=== PATIENT | female | born 1955 | race African-American/Black ===

== ENCOUNTER 2017-04-20 02:34 | Emergency (ER) | payer MEDICAID ==
[~2017-04-20] VITALS: Ht 162.6 cm; Wt 86.2 kg
[~2017-04-20 02:34] MED LIST: CARI250T8; OMEP20TA44; POTA10TA75; TRAM50TA2; ZOLP-158
[2017-04-20] MEDS ORDERED: ETOMIDATE (2MG/ML) 20ML VIAL IV ONE ×2 (02:36→04:30)
[2017-04-20] MEDS ORDERED: SUCCINYLCHOLINE CHLORIDE 20 MG/ML 10ML VIAL IV ONE ×2 (02:37→04:30)
[2017-04-20] MEDS ORDERED: SODIUM CHLORIDE 0.9% 1,000 ML IV ONE (03:00)
[2017-04-20 03:11] LABS: Basophils # (auto) 0 uL; Basophils % (auto) 0.8 % (0.0-2.0); Eosinophils # (auto) 0.1 uL; Eosinophils % (auto) 1.6 % (0.0-7.0); Hematocrit 34.7 % (36.0-46.0); Hemoglobin 11.4 g/dL (12.2-16.2); Lymphocytes # (auto) 1.6 uL; Lymphocytes % (auto) 42.5 % (10.0-50.0); Mean Corpuscular Hemoglobin 27.2 pg (28.0-32.0); Mean Corpuscular Hgb Conc. 32.9 g/dL (32.0-36.0); Mean Corpuscular Volume 82.6 fL (80.0-100.0); Mean Platelet Volume 8.9 fL (7.4-10.4); Monocytes # (auto) 0.3 uL; Monocytes % (auto) 8.8 % (0.0-12.0); Neutrophils # (auto) 1.8 uL; Neutrophils % (auto) 46.3 % (37.0-80.0); Platelet Count (auto) 269 10^3/uL (140-450); Red Cell Distribution Width 14.3 % (11.6-16.0); White Blood Cell 3.8 10^3/uL (4.4-10.8)
[2017-04-20 03:18] LABS: Allen Test Modified; Base Excess 1.8 mmol/L (-2.0-2.0); Blood 02Sat 95.4 % (96-100); Blood COHb 0.3 % (0.5-1.5); Blood MetHb 0.3 % (0.0-1.5); HCO3 26.8 mmol/L (22-26.0); HHb 4.6 % (0.0-5.0); MODE NASAL CANNULA; O2Hb 94.8 % (94.0-97.0); PCO2 43.6 mmHg (35.0-45.0); PCO2(T) 43.6 mmHg (35.0-45.0); PO2 89.5 mmHg (80.0-100.0); PO2(T) 89.5 mmHg (80.0-100.0); Sample Type Arterial; pH 7.406 (7.350-7.450)
[2017-04-20 03:34] LABS: Albumin 2.8 g/dL (3.4-5.0); Anion Gap 8 (5-15); Aspartate Aminotransferase 15 U/L (15-37); BUN/Creatinine Ratio 14.4; Blood Urea Nitrogen 15 mg/dL (7-18); Carbon Dioxide 30 mmol/L (21-32); Chloride 106 mmol/L (98-107); GFR African American 69 mL/min; GFR Non-African American 57 mL/min; Glucose 91 mg/dL (74-106); Magnesium 2.1 mg/dL (1.6-2.6); Sodium 144 mmol/L (136-145)
[2017-04-20 03:36] LABS: Acetaminophen < 2.0 ug/mL (10-30); Alkaline Phosphatase 102 U/L (45-117); Bilirubin, Total < 0.1 mg/dL (0.2-1.0); Salicylate < 1.7 mg/dL (2.8-20.0); Total Protein 6.3 g/dL (6.4-8.2)
[2017-04-20 04:01] LABS: Urine Bilirubin Negative (Negative); Urine Blood Negative /uL (Negative); Urine Color Yellow (Yellow); Urine Glucose Normal (Normal); Urine Ketone Negative (Negative); Urine Nitrite Negative (Negative); Urine RBC <1 /hpf (0 - 4); Urine Urobilinogen Normal (Negative)
[2017-04-20 09:03] VITALS: BP 111/79
[2017-04-20 09:48] LABS: Albumin 2.6 g/dL (3.4-5.0); BUN/Creatinine Ratio 14.8; Potassium 3.5 mmol/L (3.5-5.1)
[2017-04-20 09:51] LABS: Bilirubin, Total 0.2 mg/dL (0.2-1.0)
== END 2017-04-20 11:29 | disposition home or self-care (01) ==
LOC: EDBD 02:34 → ER 02:34
DX: T40.4X1A Poisoning by other synthetic narcotics, accidental (unintentional), initial encounter (principal); T42.6X1A Poisoning by other antiepileptic and sedative-hypnotic drugs, accidental (unintentional), initial encounter; T46.5X1A Poisoning by other antihypertensive drugs, accidental (unintentional), initial encounter; F23 Brief psychotic disorder; R41.82 Altered mental status, unspecified; I10 Essential (primary) hypertension; Z90.710 Acquired absence of both cervix and uterus; Z88.6 Allergy status to analgesic agent; Z79.899 Other long term (current) drug therapy; Y92.9 Unspecified place or not applicable
CPT/HCPCS: 36415; 36600; 51702; 71010; 80053; 80307; 80320; 80329; 81001; 82805; 83605; 83735; 85025; 93005; 96360; 96361; 99285; J0330; J7030; 94761

== ENCOUNTER 2021-04-27 15:42 | Emergency (ER) | payer OTHER, MEDICAID ==
[~2021-04-27] VITALS: Ht 160 cm; Wt 77.1 kg
[~2021-04-27 15:42] MED LIST changes: +CARI250T; -CARI250T8; +POTA-264; -POTA10TA75; -ZOLP-158; +ZOLP5TAB
[2021-04-27 16:50] VITALS: BP 120/72
[2021-04-27] MEDS ORDERED: PROMETHAZINE HCL 25 MG/ML 1ML IM ONE (17:00)
[2021-04-27] MEDS ORDERED: MEPERIDINE HCL (50 MG/ML) 1 ML VIAL IM ONE (17:00)
== END 2021-04-27 18:19 | disposition home or self-care (01) ==
LOC: ER 15:42
DX: M48.07 Spinal stenosis, lumbosacral region (principal); M51.36 Other intervertebral disc degeneration, lumbar region; M54.16 Radiculopathy, lumbar region; I10 Essential (primary) hypertension; Z88.6 Allergy status to analgesic agent; Z88.5 Allergy status to narcotic agent; Z88.1 Allergy status to other antibiotic agents; Z79.899 Other long term (current) drug therapy; Z90.710 Acquired absence of both cervix and uterus
CPT/HCPCS: 72131; 96372; 99284; J2175; J2550

== ENCOUNTER 2022-11-21 13:50 | Emergency (ER) | payer OTHER, MEDICAID ==
[~2022-11-21] VITALS: Ht 160 cm; Wt 73.0 kg
[2022-11-21 14:54] VITALS: BP 133/95
[2022-11-21] MEDS ORDERED: ACETAMINOPHEN 500 MG TAB PO ONE (16:30)
[2022-11-21] MEDS ORDERED: methylPREDNISolone SOD SUCC 125 MG/2 ML VL IM ONE (16:30)
[2022-11-21] MEDS ORDERED: PRED20TA2 PO (16:41)
== END 2022-11-21 17:02 | disposition home or self-care (01) ==
LOC: ER 13:50
DX: M17.0 Bilateral primary osteoarthritis of knee (principal); M25.462 Effusion, left knee; I10 Essential (primary) hypertension; Z90.710 Acquired absence of both cervix and uterus; Z88.6 Allergy status to analgesic agent
CPT/HCPCS: 73562; 96372; 99283; J2930

== ENCOUNTER 2023-03-13 21:51 | Emergency (ER) | payer OTHER, MEDICAID ==
[~2023-03-13] VITALS: Ht 160 cm; Wt 89.1 kg
[~2023-03-13 21:51] MED LIST changes: +PRED20TA2 PO
[2023-03-13 22:20] LABS: Basophils # (auto) 0.1 10 ^3/uL (0-0.2); Eosinophils # (auto) 0.1 10 ^3/uL (0-0.8); Eosinophils % (auto) 2.8 % (0.0-7.0); Hematocrit 36.7 % (36.0-46.0); Hemoglobin 11.8 g/dL (12.2-16.2); Lymphocytes # (auto) 1.4 10 ^3/uL (0.4-5.4); Lymphocytes % (auto) 26.4 % (10.0-50.0); Mean Corpuscular Hemoglobin 27.3 pg (28.0-32.0); Mean Corpuscular Volume 85.2 fL (80.0-100.0); Monocytes # (auto) 0.4 10 ^3/uL (0-1.3); Neutrophils # (auto) 3.3 10 ^3/uL (1.6-8.6); Neutrophils % (auto) 62.8 % (37.0-80.0); Nucleated Red Blood Cells % 0.1 %; Red Blood Cells 4.31 10^6/uL (4.0-5.20); Red Cell Distribution Width 15.1 % (11.8-14.3); White Blood Cell 5.3 10^3/uL (4.4-10.8)
[2023-03-13 22:39] LABS: Albumin 3.2 g/dL (3.4-5.0); Potassium 3.3 mmol/L (3.5-5.1)
[2023-03-13 22:45] LABS: BUN/Creatinine Ratio 13.8 (10.0-20.0); Bilirubin, Total 0.2 mg/dL (0.2-1.0); Total Protein 6.4 g/dL (6.4-8.2)
[2023-03-14 01:27] LABS: Urine Bacteria MANY /hpf (None Seen); Urine Blood Negative /uL (Negative); Urine Hyaline Cast MANY /lpf (0 - 2); Urine Mucus FEW (None Seen); Urine WBC 102 /hpf (0 - 5)
[2023-03-14] MEDS ORDERED: CEPH-510 PO (05:39)
[2023-03-14 05:43] VITALS: BP 128/98
== END 2023-03-14 05:58 | disposition home or self-care (01) ==
LOC: ER 21:51
DX: R07.89 Other chest pain (principal); R60.0 Localized edema; I10 Essential (primary) hypertension; D64.9 Anemia, unspecified; E87.6 Hypokalemia; N39.0 Urinary tract infection, site not specified; J45.909 Unspecified asthma, uncomplicated; Z90.710 Acquired absence of both cervix and uterus; Z88.6 Allergy status to analgesic agent
CPT/HCPCS: 36415; 71045; 80053; 81001; 84484; 85025; 93005

== ENCOUNTER 2025-07-25 08:51 | Emergency (ER) | payer OTHER, MEDICAID ==
[~2025-07-25] VITALS: Ht 160 cm; Wt 72.3 kg
[~2025-07-25 08:51] MED LIST changes: +CEPH-510 PO
--- NOTE | 2025-07-25 09:18 | ED.PDOC ---
HPI Allergic reaction HPI Comments This is a 70-year-old female who presents to the ED with a chief complaint of rash to bilateral arms and legs as of X5 days ago (07/20/25) after walking through bushes and grass. Patient reports going to urgent care on Thursday where she was prescribed Mupirocin 2% ointment and Cephalexin 500mg, but notes no relief. Patient reports additional symptoms of itchiness and redness to the rash site, with a swelling of the bilateral feet. Patient has not further complaints at this time and otherwise denies further associated symptoms of throat swelling, chest pain, fever, chills, nausea, vomiting, or general weakness. Chief Complaint: Rash Time Seen by MD: 09:13 Primary Care Provider: JACKSON Reviewed Notes: Nurses Notes, Medications, Allergies Allergies: Coded Allergies: Acetaminophen (Verified Allergy, Severe, ITCHING, 05/17/12) Hydrocodone (Verified Allergy, Severe, ITCHING, 05/17/12) Tetracyclines (Verified Allergy, Unknown, 04/27/21) Home Meds Active Scripts Cetirizine Hcl (Cetirizine Hcl) 5 Mg Tab, 10 MG PO DAILY for 30 Days, #60 TAB 0 Refills Prov:MAGALI HARDING NP 07/25/25 Methylprednisolone (Medrol Dosepak) 4 Mg Sam, 4 MG PO UD, #21 TAB 0 Refills UAD Prov:MAGALI HARDING NP 07/25/25 Triamcinolone Acetonide (Triamcinolone Acetonide) 0.1 % Cre, 1 APPLIC EX BID for 7 Days, #60 GRAMS 0 Refills Prov:MAGALI HARDING NP 07/25/25 Cephalexin ( Keflex 500) 500 Mg Cap, 1 CAP PO QID for 5 Days, #20 CAP Prov:PATRIZIA GALLAGHER DO 03/14/23 Prednisone (Prednisone) 20 Mg Tab, 40 MG PO DAILY, #20 MG Prov:KE GUERRERO 11/21/22 Reported Medications Potassium Chloride (K-Tabs) 10 Meq Tab 05/17/12 Carisoprodol (Soma) 250 Mg Tab 05/17/12 Zolpidem Tartrate (Ambien) 5 Mg Tab 05/17/12 Omeprazole ([facility] Omeprazole) 20 Mg Tab 05/17/12 Tramadol Hcl (Tramadol Hcl) 50 Mg Tab 05/17/12 Information Source: Patient Mode of Arrival: Ambulatory Severity: Moderate Rash: Mild SOB: None Difficulty swallowing: None Pruritus: None Timing: Days Duration: Since onset Prehospital treatment: None Location: Arm, Leg Modyifying Factors: None Associated Sign and Symptoms: None Past Medical History PAST MEDICAL HISTORY: Arthritis, HTN Surgical History: Hysterectomy 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 Hx Family History Family History: No family hx of Heart anna, No family hx of HTN, No family hx of Stroke Social History Smoker: Non-Smoker Alcohol: Denies ETOH Use Drugs: Denies Drug Use Lives In: Home Constitutional: denies: chills, diaphoresis, fatigue, fever, malaise, sweats, weakness, others EENTM: denies: blurred vision, double vision, ear bleeding, ear discharge, ear drainage, ear pain, ear ringing, eye pain, eye redness, hearing loss, mouth pain, mouth swelling, nasal discharge, nose bleeding, nose congestion, nose pain, photophobia, tearing, throat pain, throat swelling, voice changes, others Respiratory: denies: cough, hemoptysis, orthopnea, SOB at rest, shortness of breath, SOB with excertion, stridor, wheezing, others Cardiovascular: denies: chest pain, dizzy spells, diaphoresis, Dyspnea on exertion, edema, irregular heart beat, left arm pain, lightheadedness, palpitations, PND, syncope, others Gastrointestinal: denies: abdomen distended, abdominal pain, blood streaked bowels, constipated, diarrhea, dysphagia, difficulty swallowing, hematemesis, melena, nausea, poor appetite, poor fluid intake, rectal bleeding, rectal pain, vomiting, others Genitourinary: denies: abnormal vagina bleeding, burning, dyspareunia, dysuria, flank pain, frequency, hematuria, incontinence, pain, , vagina discharge, urgency, others Neurological: denies: dizziness, fainting, headache, left sided numbness, left sided weakness, numbness, paresthesia, pre-existing deficit, right sided numbness, right sided weakness, seizure, speech problems, tingling, tremors, weakness, others Musculoskeletal: denies: back pain, gout, joint pain, joint swelling, muscle pain, muscle stiffness, neck pain, others Integumetry: reports: rash; denies: bruises, change in color, change in hair/nails, dryness, laceration, lesions, lumps, wounds, others Allergic/Immunocompromised: denies: Difficulty Healing, Frequent Infections, Hives, Itching, others Hematologic/Lymphatic: denies: anemia, blood clots, easy bleeding, easy bruising, swollen glands, others Endocrine: denies: excessive hunger, excessive sweating, excessive thirst, excessive urination, flushing, intolerance to cold, intolerance to heat, unexplained weight gain, unexplained weight loss, others Psychiatric: denies: anxiety, bipolar disorder, depression, hopeless, panic disorder, schizophrenia, sleepless, suicidal, others All Other Systems: Reviewed and Negative Physical Exam General Appearance: Mild Distress, Normal HEENT: Normal ENT Inspection, Pharynx Normal, TMs Normal Neck: Full Range of Motion, Non-Tender, Normal, Normal Inspection Respiratory: Chest Non-Tender, Lungs Clear, No Accessory Muscle Use, No Respiratory Distress, Normal Breath Sounds Cardiovascular: No Edema, No JVD, No Murmur, No Gallop, Normal Peripheral Pulses, Regular Rate/Rhythm Breast Exam: Deferred Gastrointestinal: No Organomegaly, Non Tender, No Pulsatile Mass, Normal Bowel Sounds, Soft Genitalia: Deferred Pelvic: Deferred Rectal: Deferred Extremities: No calf tenderness, Normal capillary refill, Normal inspection, Normal range of motion, Non-tender, No pedal edema Musculoskeletal : Apperance: Normal Neurologic: Alert, refueling ramp attendant II-XII nml as Tested, No Motor Deficits, Normal Affect, Normal Mood, No Sensory Deficits Cerebellar Function: Normal Reflexes: Normal Skin: Dry, Normal Color, Rash (scattered erythematous nodules 1cm throguhout the upper and lower extremities ) Lymphatic: No Adenopathy Was a procedure done? Was a procedure done?: No Differential diagnosis (all) Differential Diagnosis: Contact Dermatitis X-Ray, Labs, Meds, VS Vital Signs Date Time Temp Pulse Resp B/P (MAP) Pulse Ox O2 Delivery O2 Flow Rate FiO2 07/25/25 10:10 98.2 68 16 136/89 (105) 87 98.2 07/25/25 10:10 68 16 98 Room Air 07/25/25 08:54 98.7 67 18 116/71 97 98.7 Current Medications Medications (Trade) Dose Ordered Sig/Little Route Start Time Stop Time Status Last Admin Methylprednisolone Sodium Succinate (Solu Medrol) 125 mg ONCE ONCE IM 07/25/25 09:15 07/25/25 09:16 DC 07/25/25 09:21 Famotidine (Pepcid Tablet) 40 mg ONCE ONCE PO 07/25/25 09:15 07/25/25 09:16 DC 07/25/25 09:22 Diphenhydramine HCl (Benadryl Capsule) 25 mg ONCE ONCE PO 07/25/25 09:15 07/25/25 09:16 DC 07/25/25 09:21 X-Ray, Labs, Meds, VS Comment This is a 70-year-old female who presents to the ED with a chief complaint of rash to bilateral arms and legs as of X5 days ago (07/20/25) after walking through bushes and grass. Patient arrives alert and oriented, ABC's intact, afebrile, vital signs stable, saturating well in room air Patient was given: Solu-Medrol 125 mg/2ml, Pepcid tablet 40 mg, Benadryl capsule 25 mg. Tolerated medications with no adverse reaction. On reevaluation, patient had symptomatic improvement. Patient is stable for discharge at this time. External notes reviewed. Test results and diagnostic imaging interpreted. All diagnostic findings, discharge care, education and instructions provided Follow-up with PCP in 2 to 3 days Patient verbalized understanding and agreed to treatment plan Vital signs stable, afebrile, no acute distress noted Patient ambulatory with strong steady gait Advised to return precautions for any new or worsening symptoms, return to ER immediately for re-evaluation Patient is aware that the purpose of this visit was for an acute medical emergency requiring emergent stabilization. Chronic conditions, including malignancies have not been ruled out. Patient is instructed to follow up with PCP as directed and discharge instructions for continued care and workup. If unable to arrange follow-up, patient is to return to the emergency department for reassessment. Patient (parent or legal guardian if applicable) was given verbal and written discharge instructions and acknowledges understanding. Additional MDM Review of External, Non-ED records: External records reviewed. Discussion with independent historian (EMS, family) history obtained from the patient/parents (if applicable) at bedside Chronic conditions affecting care: None Social determinants of health affecting care: None Consideration of admission (observation or admission): I considered escalation of care to admission for this patient, however given the reassuring workup, the patient is safe for outpatient management. Discussion with the Radiology: No Tests considered but not performed: Prescription medication considered but not given: 12 lead EKG interpretation: Images Reviewed?: Images reviewed and evaluated by me Time of 1ST Reevaluation: 09:32 Reevaluation 1ST: Unchanged Patient Education/Counseling: Diagnosis, Treatment, Need For Follow Up Family Education/Counseling: No Family Present Medical Screening: No EMC Exist At This Time SEPSIS Sepsis Screen Date sepsis recognized/suspect: Jul 25, 2025 Time Sepsis recognized/suspect: 853 Recent Procedure: No On Antibiotic Therapy: No Respiratory Rate >20: No Heart Rate >90: No Temp<36 C (96.8 F) or >38.3 C: No SBP <90 or MAP <65 mmHG: No New Acute Mental Status Change: No Is the patient on CPAP, BIPAP,: No Vital Signs Date Time Temp Pulse Resp B/P (MAP) Pulse Ox O2 Delivery O2 Flow Rate FiO2 07/25/25 10:10 98.2 68 16 136/89 (105) 87 98.2 07/25/25 10:10 68 16 98 Room Air 07/25/25 08:54 98.7 67 18 116/71 97 98.7 Medications Medications Dose Ordered Sig/Little Route Start Time Stop Time Status Last Admin Dose Admin Diphenhydramine HCl 25 mg ONCE ONCE PO 07/25/25 09:15 07/25/25 09:16 DC 07/25/25 09:21 Famotidine 40 mg ONCE ONCE PO 07/25/25 09:15 07/25/25 09:16 DC 07/25/25 09:22 Methylprednisolone Sodium Succinate 125 mg ONCE ONCE IM 07/25/25 09:15 07/25/25 09:16 DC 07/25/25 09:21 Departure 1 Departure Time of Disposition: 10:02 Impression: Primary Impression: Insect bite Qualified Codes: W57.XXXA - Bitten or stung by nonvenomous insect and other nonvenomous arthropods, initial encounter Disposition: 01 HOME / SELF CARE / HOMELESS Condition: Stable Additional Instructions: Follow up with PCP in 1-2 days. Take medications as prescribed. Return to the ED for any new or worsening symptoms. e-Prescriptions Cetirizine Hcl (Cetirizine Hcl) 5 Mg Tab 10 MG PO DAILY for 30 Days, #60 TAB 0 Refills Prov: MAGALI HARDING SALON SHAMPOO ASSISTANT 07/25/25 Methylprednisolone (Medrol Dosepak) 4 Mg Sam 4 MG PO UD, #21 TAB 0 Refills UAD Prov: MAGALI HARDING SALON SHAMPOO ASSISTANT 07/25/25 Triamcinolone Acetonide (Triamcinolone Acetonide) 0.1 % Cre 1 APPLIC EX BID for 7 Days, #60 GRAMS 0 Refills Prov: MAGALI HARDING SALON SHAMPOO ASSISTANT 07/25/25 Discharged With: Self Critical Care Note Critical Care Time?: No Stability Stability form required: No Heart Score Heart Score: Heart Score Response (Comments) Value History N/A 0 EKG N/A 0 Age N/A 0 Risk Factors N/A 0 Troponin N/A 0 Total 0 I personally scribed for MAGALI HARDING SALON SHAMPOO ASSISTANT ([email or web address]) on 07/25/25 at 09:18. Electronically submitted by Tori Lorenz (Indigoz). I personally scribed for MAGALI HARDING F SALON SHAMPOO ASSISTANT ([email or web address]) on 07/25/25 at 09:19. Electronically submitted by Tori Lorenz (Indigoz). I personally scribed for MAGALI HARDING F SALON SHAMPOO ASSISTANT ([email or web address]) on 07/25/25 at 09:33. Electronically submitted by Tori Lorenz (Indigoz). I personally scribed for MAGALI HARDING F SALON SHAMPOO ASSISTANT ([email or web address]) on 07/25/25 at 09:35. Electronically submitted by Tori Lorenz (Indigoz). I personally scribed for MAGALI HARDING F SALON SHAMPOO ASSISTANT ([email or web address]) on 07/25/25 at 09:44. Electr onically submitted by Tori Lorenz (Indigoz). MAGALI HARDING SALON SHAMPOO ASSISTANT Jul 25, 2025 09:18
[2025-07-25] MEDS: methylPREDNISolone SOD SUCC 125 MG/2 ML VL IM ONE (09:21)
[2025-07-25] MEDS: FAMOTIDINE 20 MG TAB PO ONE (09:22)
[2025-07-25] MEDS ORDERED: TRIO1TP EX (10:05)
[2025-07-25] MEDS ORDERED: CETI5TAB6 PO (10:05)
[2025-07-25] MEDS ORDERED: METH4PAK PO (10:05)
[2025-07-25 10:10] VITALS: BP 136/89; PULSE 68; RESP 16; TEMP 98.2; O2SAT 98
== END 2025-07-25 10:12 | disposition home or self-care (01) ==
LOC: ER 08:51
DX: S40.862A Insect bite (nonvenomous) of left upper arm, initial encounter (principal); S40.861A Insect bite (nonvenomous) of right upper arm, initial encounter; S80.862A Insect bite (nonvenomous), left lower leg, initial encounter; S80.861A Insect bite (nonvenomous), right lower leg, initial encounter; M19.90 Unspecified osteoarthritis, unspecified site; I10 Essential (primary) hypertension; Z79.899 Other long term (current) drug therapy; Z90.710 Acquired absence of both cervix and uterus; Z88.5 Allergy status to narcotic agent; Z79.52 Long term (current) use of systemic steroids; W57.XXXA Bitten or stung by nonvenomous insect and other nonvenomous arthropods, initial encounter; Y93.89 Activity, other specified; Y92.89 Other specified places as the place of occurrence of the external cause; Y99.8 Other external cause status
CPT/HCPCS: 96372; 99283; J2919